=== PATIENT | female | born 1965 | race Caucasian/White ===

== ENCOUNTER 2022-02-13 11:00 | Emergency (ER) | payer BC ==
[~2022-02-13] VITALS: Ht 157.5 cm; Wt 88.6 kg
[2022-02-13] MEDS ORDERED: nitroGLYCERIN 0.4mg SUBLingual tab SL PRN (11:15)
[2022-02-13] MEDS ORDERED: aspirin 81mg tab.chew PO ONE (11:15)
[2022-02-13 11:41] LABS: BASOPHILS # (AUTO) 0.1 X10'3 (0-0.2); EOSINOPHILS # (AUTO) 0.1 X10'3 (0-0.9); EOSINOPHILS % (AUTO) 1.4 % (0-6); HEMATOCRIT 44.5 % (35.0-45.0); HEMOGLOBIN 15.4 g/dl (12.0-16.0); LYMPHOCYTES # (AUTO) 1.9 X10'3 (1.1-4.8); LYMPHOCYTES % (AUTO) 23.7 % (21-51); MEAN CORPUSCULAR HEMOGLOBIN 30.5 PG (27.0-31.0); MEAN CORPUSCULAR HGB CONC 34.7 g/dL (33.0-36.5); MONOCYTES # (AUTO) 0.6 X10'3 (0-0.9); MONOCYTES % (AUTO) 7.2 % (2-12); NEUTROPHILS # (AUTO) 5.3 X10'3 (1.8-7.7); NEUTROPHILS % (AUTO) 66.7 % (42-75); PLATELET COUNT 283 X10'3 (140-440); RED BLOOD COUNT 5.06 X10'6 (4.20-5.60); RED CELL DISTRIBUTION WIDTH 13.2 % (11.5-14.5); WHITE BLOOD COUNT 7.9 X10'3 (4.5-11.0)
[2022-02-13 11:54] LABS: ALANINE AMINOTRANSFERASE 17 U/L (12-78); ALBUMIN 4.1 G/DL (3.4-5.0); ALBUMIN/GLOBULIN RATIO 1.2 (1.1-1.5); ALKALINE PHOSPHATASE 72 IU/L (46-116); ANION GAP 7 (8-16); ASPARTATE AMINO TRANSFERASE 16 U/L (10-37); BILIRUBIN,TOTAL 0.4 MG/DL (0.1-1.0); BLOOD UREA NITROGEN 10 MG/DL (7-18); BUN/CREATININE RATIO 10.9 (6.6-38.0); CALCIUM 9.5 MG/DL (8.5-10.1); CHLORIDE 107 MMOL/L (99-107); CREATININE 0.92 MG/DL (0.40-0.90); GLUCOSE 102 MG/DL (70-104); SODIUM 142 MMOL/L (135-145); TOTAL CARBON DIOXIDE 28.1 MMOL/L (24-32); TOTAL PROTEIN 7.6 G/DL (6.4-8.2); eGFR 63 ML/MIN
[2022-02-13] MEDS ORDERED: mag hydrox/Alum hydrox/simeth 30ml oral suspension PO ONE (12:20)
[2022-02-13] MEDS ORDERED: sucralfate 1 gm tablet PO ONE (12:20)
[2022-02-13] MEDS ORDERED: LIDOcaine Viscous 15ml cup MM ONE (12:20)
[2022-02-13] MEDS ORDERED: PANT-47 PO (14:25)
[2022-02-13] MEDS ORDERED: cloNIDine 0.1 mg tablet PO ONE (15:05)
[2022-02-13 15:20] VITALS: BP 197/98
== END 2022-02-13 15:28 | disposition home or self-care (01) ==
LOC: ER 11:01
DX: R07.9 Chest pain, unspecified (principal); M54.2 Cervicalgia; R51.9 Headache, unspecified; I10 Essential (primary) hypertension
CPT/HCPCS: 36415; 71045; 80053; 83880; 84484; 85025; 93005; 99285